=== PATIENT | female | born 1990 | race Caucasian/White ===

== ENCOUNTER 2022-01-20 12:22 | Emergency (ER) | payer MEDICAID, SELFPAY ==
--- NOTE | ~2022-01-20 | CT_ITS ---
EXAMINATION: CT LUMBAR SPINE WITHOUT CONTRAST CLINICAL INFORMATION: Lumbar pain. Tingling in legs. COMPARISON: None TECHNIQUE: Helical non-contrast CT images were obtained through the lumbar spine without contrast. Multiplanar reformats were rendered and reviewed. This CT examination was performed using dose optimization techniques as appropriate, variously including the following: *Automated exposure control *Adjustment of mA and/or kV according to patient size (this includes techniques or standardized protocols for targeted exams where dose is matched to indication/reason for exam; i.e. extremities or head) *Use of iterative reconstruction technique DLP: 630 mGy-cm FINDINGS: The lumbar vertebral bodies maintain normal heights and alignment. No significant disc height loss is seen. There is no fracture. No pars defect is seen. There is no significant narrowing of the spinal canal. No gross disc herniation is seen. The extraspinal soft tissues appear normal. CT/CT lumbar spine wo con IMPRESSION: No abnormality identified within the lumbar spine. No fracture or malalignment. No evidence of gross disc herniation.
[2022-01-20 12:25] VITALS: BP 148/89; PULSE 93; RESP 18; TEMP 36.9; O2SAT 98; BMI 31.6
[2022-01-20 13:28] LABS: MANUAL DIFF FLAG NO
[2022-01-20 13:35] LABS: Basophils Percent Auto 0.4 % (0-2); Eosinophils Absolute Auto 0.1 X10*3/uL (0.0-0.4); Eosinophils Percent Auto 1.6 % (0-4); Hematocrit 40.6 % (37.0-47.0); Hemoglobin 13.8 g/dl (12.0-16.0); Imm Gran Abs Auto 0.01 X10*3/uL (0.00-0.03); Imm Gran Pct Auto 0.1 % (0.0-0.4); Lymphocytes Absolute Auto 1.8 X10*3/uL (1.2-4.9); Lymphocytes Percent Auto 25.1 % (20-40); Mean Corpuscular Hemoglobin 32.8 pg (27.0-33.0); Mean Corpuscular Volume 96.4 fL (80.0-98.0); Mean Platelet Volume 10.8 fL (9.4-12.3); Monocytes Absolute Auto 0.8 X10*3/uL (0.1-1.2); Monocytes Percent Auto 11.5 % (2-11); Neutrophils Absolute Auto 4.3 x10*3/uL (2.0-8.3); Neutrophils Percent Auto 61.3 % (45-73); Platelet Count 357 X10*3/uL (160-400); Red Blood Count 4.21 X10*6/uL (4.20-5.50); Red Cell Distribution Width 11.9 % (11.0-16.0)
[2022-01-20 13:42] LABS: Anion Gap 12 (12-20); Blood Urea Nitrogen 5 mg/dL (9-16); Carbon Dioxide 31 mmol/L (22-29); Chloride 100 mmol/L (96-108); Creatinine Clr Calc Pharmacy 117.8; Estimated Glomerular Filt Rate > 60; Glucose Random 99 mg/dL (60-115); Potassium 3.4 mmol/L (3.3-5.1); Sodium 140 mmol/L (135-145)
[2022-01-20 13:44] LABS: Appearance Urine HAZY; Color Urine DK YELLOW; Glucose Urine UA NEG (NEG); Leukocyte Esterase Urine TRACE (NEG); Nitrite Urine NEG (NEG); Specific Gravity - Urine 1.025 (1.005-1.025); Urine Blood NEG (NEG); Urine Ketones NEG (NEG); Urine Protein TRACE MG/DL (NEG-TRACE)
[2022-01-20 13:53] LABS: Bacteria Urine TRACE /LPF; Mucus Urine 3+ /LPF; RBC Urine 0 /HPF (0); Squamous Epithelial Cell Urine 3+ /LPF
[2022-01-20 15:19] VITALS: BP 133/84; PULSE 81; RESP 16; TEMP 36.6; O2SAT 99
[2022-01-20 15:57] LABS: B Type Natriuretic Peptide 36 pg/mL (<100)
--- NOTE | 2022-01-20 16:03 | ED.GENADULT ---
HPI - General Adult General Chief complaint: General Medical Stated complaint: back pain/swollen legs and feet Time Seen by Provider: 01/20/22 15:22 Source: patient Mode of arrival: ambulatory Limitations: no limitations History of Present Illness HPI narrative: Patient comes to the emergency room complaining of lower back pain for 1 week. Patient states her legs feel tingly. Patient denies any motor dysfunction. Denies any injury, denies urinary/fecal incontinence/retention. Also, patient states that within the last few days, she has noticed that her lower extremities have been edematous Related Data Previous Rx's Medication Instructions Recorded furosemide 20 mg tablet (Lasix) 20 mg PO DAILY #5 tab 01/20/22 ketorolac 10 mg tablet 10 mg PO BID PRN 5 Days #7 tab 01/20/22 Allergies Allergy/AdvReac Type Severity Reaction Status Date / Time amoxicillin [AMOXICILLIN] Allergy Severe ANAPHYLAXIS Unverified 05/02/20 16:58 penicillin V Allergy Unknown hives, SOB Verified 12/24/14 00:00 From Pen-Vee K Allergy Severe ANAPHYLAXIS Uncoded 05/02/20 16:58 Review of Systems Review of Systems: Constitutional : No Weight loss, No Fever, No Chills, No Night Sweats, No Fatigue, No Malaise ENT/Mouth : No Hearing loss, No Ear Pain, No Nasal Congestion, No Sinus Pain, No Hoarseness, No sore throat, No Rhinorrhea, No Swallowing Difficulty Eyes: No Eye Pain, No Swelling, No Redness, No Foreign Body, No Discharge, No Vision Changes Cardiovascular : No Chest Pain, No SOB, No Dyspnea on Exertion, No Orthopnea, no palpitations Respiratory : No Cough, No Sputum, No Wheezing, No Smoke Exposure, No Dyspnea Gastrointestinal : No Nausea, No Vomiting, No Diarrhea, No Constipation, No abdominal Pain, No Hematochezia, No Melena Genitourinary : no irregular bleeding, No Dysuria, No Urinary Frequency, No Hematuria, No Urinary Incontinence, No Urgency, No Flank Pain, No Urinary Flow Changes, No Hesitancy Musculoskeletal : No joint pain, No Myalgias, No Joint Swelling, complaining of new onset mild lower extremity edema bilaterally, complaining of tingling in her lower extremities bilaterally for 1 week Skin : No Skin Lesions, No rash Neuro : No Weakness, No Numbness, No Paresthesias, No Loss of Consciousness, No Dizziness, No Headache Psych : No Anxiety/Panic, No Depression, No SI/HI/AH/VH, No Social Issues, Heme/Lymph: No Bruising, No Bleeding,No Lymphadenopathy Endocrine : No Polyuria, No Polydipsia, No Temperature Intolerance [facility] Social History Social History Advance Directives: No Advance Directives Information Provided: No Physical Exam ED Vital Signs: Vital Signs - 24 hr 01/20/22 12:25 01/20/22 15:19 01/20/22 18:34 Temperature 98.4 F 97.8 F 98.0 F Pulse Rate 93 81 73 Respiratory Rate 18 16 16 Blood Pressure 148/89 H 133/84 127/83 Pulse Oximetry 98 99 99 BMI result Body Mass Index 31.6 Const Other: Appearance: Alert. Oriented X3. No acute distress. Eyes: Pupils equal, round and reactive to light. ENT: Pharynx normal. Neck: Normal inspection. Neck supple. No lymph nodes noted. No crepitus CVS: Normal heart rate and rhythm. Pulses normal. Normal S1 and S2 Respiratory: No respiratory distress. Breath sounds normal. No Wheezing. No rales Abdomen: Soft and nontender. No rigidity. No distention. Back: Pain to palpation in lumbar spine, negative straight leg raise test. Patient has 5/5 strength, normal stable gait unassisted Skin: Skin warm and dry. Normal skin color. Normal skin turgor. Extremities: No lower extremity edema. No Lacerations. No Rash Neuro: Oriented X 3. No motor deficit. No sensory deficit. Moving all extremities. No slurred speech. CN 2 through 12 grossly intact Psych: calm, cooperative, normal affect Course Course Course Narrative: Discussed labs imaging with the patient, no acute findings. Urinalysis has leukocyte esterase, small amount of white blood cells, and positive for squamous epithelial cells. Patient does not have UTI symptoms, antibiotic is not indicated. Patient was given 1 dose of IM Toradol, and Lasix 20 mg p.o. I discussed with the patient that she will be up all night urinating, states that she prefers to start the medication now Patient's back pain is likely musculoskeletal. Patient has no neurological deficits. Lower extremity edema likely secondary to venous insufficiency. BNP within normal limits. Medical Decision Making Lab Data Result diagrams: 01/20/22 13:20 01/20/22 13:20 Labs: Lab Results 01/20/22 01/20/22 01/20/22 Range/Units 13:20 13:20 13:20 WBC 7.0 (4.8-10.8) X10*3/uL RBC 4.21 (4.20-5.50) X10*6/uL Hgb 13.8 (12.0-16.0) g/dl Hct 40.6 (37.0-47.0) % MCV 96.4 (80.0-98.0) fL MCH 32.8 (27.0-33.0) pg MCHC 34.0 (31.0-35.0) g/dl RDW 11.9 (11.0-16.0) % Plt Count 357 (160-400) X10*3/uL MPV 10.8 (9.4-12.3) fL Immature Gran % (Auto) 0.1 (0.0-0.4) % Neut % (Auto) 61.3 (45-73) % Lymph % (Auto) 25.1 (20-40) % King[place]isher % (Auto) 11.5 H (2-11) % Eos % (Auto) 1.6 (0-4) % Baso % (Auto) 0.4 (0-2) % Lymph # (Auto) 1.8 (1.2-4.9) X10*3/uL [place] # (Auto) 0.8 (0.1-1.2) X10*3/uL Eos # (Auto) 0.1 (0.0-0.4) X10*3/uL Baso # (Auto) 0.0 (0.0-0.2) X10*3/uL Abs Immat Gran (auto) 0.01 (0.00-0.03) X10*3/uL Absolute Neuts (auto) 4.3 (2.0-8.3) x10*3/uL Absolute Nucleated RBC 0.000 (0.0-0.012) X10*3/uL Nucleated RBC % (auto) 0.0 (0.0-0.2) /100WBC Sodium 140 (135-145) mmol/L Potassium 3.4 (3.3-5.1) mmol/L Chloride 100 (96-108) mmol/L Carbon Dioxide 31 H (22-29) mmol/L Anion Gap 12 (12-20) BUN 5 L (9-16) mg/dL Creatinine 0.75 (0.5-1.4) mg/dL Estim Creat Clear Calc 117.8 Estimated GFR > 60 Random Glucose 99 (60-115) mg/dL Calcium 9.0 (8.4-10.2) mg/dL B-Natriuretic Peptide 36 (<100) pg/mL Beta HCG, Quant < 2 mIU/mL Urine Color Urine Appearance Urine pH (5.0-8.0) Ur Specific [place] (1.005-1.025) Urine Protein (NEG-TRACE) MG/DL Urine Glucose (UA) (NEG) MG/DL Urine Ketones (NEG) MG/DL Urine Blood (NEG) Urine Nitrite (NEG) Ur Leukocyte Esterase (NEG) Urine RBC (0) /HPF Urine WBC (0-4) /HPF Ur Squamous Epith Cells /LPF Urine Bacteria /LPF Urine Mucus /LPF 01/20/22 Range/Units 13:32 WBC (4.8-10.8) X10*3/uL RBC (4.20-5.50) X10*6/uL Hgb (12.0-16.0) g/dl Hct (37.0-47.0) % MCV (80.0-98.0) fL MCH (27.0-33.0) pg MCHC (31.0-35.0) g/dl RDW (11.0-16.0) % Plt Count (160-400) X10*3/uL MPV (9.4-12.3) fL Immature Gran % (Auto) (0.0-0.4) % Neut % (Auto) (45-73) % Lymph % (Auto) (20-40) % Kingfisher % (Auto) (2-11) % Eos % (Auto) (0-4) % Baso % (Auto) (0-2) % Lymph # (Auto) (1.2-4.9) X10*3/uL [place] # (Auto) (0.1-1.2) X10*3/uL Eos # (Auto) (0.0-0.4) X10*3/uL Baso # (Auto) (0.0-0.2) X10*3/uL Abs Immat Gran (auto) (0.00-0.03) X10*3/uL Absolute Neuts (auto) (2.0-8.3) x10*3/uL Absolute Nucleated RBC (0.0-0.012) X10*3/uL Nucleated RBC % (auto) (0.0-0.2) /100WBC Sodium (135-145) mmol/L Potassium (3.3-5.1) mmol/L Chloride (96-108) mmol/L Carbon Dioxide (22-29) mmol/L Anion Gap (12-20) BUN (9-16) mg/dL Creatinine (0.5-1.4) mg/dL Estim Creat Clear Calc Estimated GFR Random Glucose (60-115) mg/dL Calcium (8.4-10.2) mg/dL B-Natriuretic Peptide (<100) pg/mL Beta HCG, Quant mIU/mL Urine Color DK YELLOW Urine Appearance HAZY Urine pH 6.0 (5.0-8.0) Ur Specific [place] 1.025 (1.005-1.025) Urine Protein TRACE (NEG-TRACE) MG/DL Urine Glucose (UA) NEG (NEG) MG/DL Urine Ketones NEG (NEG) MG/DL Urine Blood NEG (NEG) Urine Nitrite NEG (NEG) Ur Leukocyte Esterase TRACE H (NEG) Urine RBC 0 (0) /HPF Urine WBC 5-9 H (0-4) /HPF Ur Squamous Epith Cells 3+ /LPF Urine Bacteria TRACE /LPF Urine Mucus 3+ /LPF Imaging Data Lumbar CT: Radiologist's impression: INDINGS: The lumbar vertebral bodies maintain normal heights and alignment. No significant disc height loss is seen. There is no fracture. No pars defect is seen. There is no significant narrowing of the spinal canal. No gross disc herniation is seen. The extraspinal soft tissues appear normal. CT/CT lumbar spine wo con IMPRESSION: No abnormality identified within the lumbar spine. No fracture or malalignment. No evidence of gross disc herniation. Discharge Plan Discharge Clinical Impression: Lumbar back pain, Edema of lower extremity Patient Disposition: Home, Self-Care Instructions: Leg Edema (ED), Lower Back Exercises (ED) Additional Instructions: Please follow-up with your primary care physician tomorrow. If you have any worsening or new symptoms, please return to the emergency room or call 911 Prescriptions: New furosemide [Lasix] 20 mg tablet 20 mg PO DAILY Qty: 5 0RF ketorolac 10 mg tablet 10 mg PO BID PRN (Reason: pain) 5 Days Qty: 7 0RF Rx Instructions: Under use with ibuprofen, Aleve, naproxen. If needed, only use Tylenol
[2022-01-20 18:34] VITALS: BP 127/83; PULSE 73; RESP 16; TEMP 36.7; O2SAT 99
[2022-01-20 18:52] LABS: HCG Quantitative < 2 mIU/mL
[2022-01-20] MEDS: Ketorolac Tromethamine 60 MG/2 ML VIAL IM (20:06)
[2022-01-20] MEDS: Furosemide 20 MG TABLET PO (20:07)
== END 2022-01-20 20:10 | disposition home or self-care (01) ==
PROVIDERS: Emergency Provider Emergency Medicine
DX: M54.50 Low back pain, unspecified (principal); R60.0 Localized edema
CPT/HCPCS: 36415; 72131; 80048; 81001; 83880; 84702; 85025; 87086; 96372; 99283; 99284; J1885

== ENCOUNTER 2025-04-18 14:07 | Emergency (ER) | payer SELFPAY | END 2025-04-18 14:29 | disposition left against medical advice (07) | PROVIDERS: Emergency Provider Emergency Medicine | DX: Z04.1 Encounter for examination and observation following transport accident (principal); Z53.21 Procedure and treatment not carried out due to patient leaving prior to being seen by health care provider ==

== ENCOUNTER 2025-04-19 08:05 | Emergency (ER) | payer SELFPAY ==
[2025-04-19 08:10] VITALS: BP 143/80; PULSE 74; RESP 16; TEMP 36.6; O2SAT 97; BMI 33.3
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
--- OUTSIDE RECORDS SUMMARY | 2025-04-19 08:57 | XMS_ITS | Clinical Summary ---
Author Organization [facility] Address [address] [place] [id number] Phone Care Team Providers Care Ship Mate Name Role Phone Unavailable Primary Care Provider Unavailabl e Immunizations Immunization Administration Dates Next Due DTP 01/12/1995, 2,1990,07/11,1990 HPV, Quadrivalent 09/21/2007 Hep B, ped/adol 07/28/2001,03/01/2001,10/06/2000 Hib (HbOC) 1990 Hib (PRP-T) 06/06/1991,1990 MMR 01/12/1995,06/06/1991 Meningococcal Conj (Menactra) MCV4P 05/30/2007 OPV 01/12/1995, 2,1990,04/22 Td (adult) (MBL), 2 Lf tetan us toxoid, PF, adsorbed 07/28/2001 Tdap 05/30/2007 Social History Tobacco Use Types Packs/Day Years Used Date Smoking Tobacco: Never Assessed Comments Unknown Sex and Gender Information Value Date Recorded Sex Assigned at Not on file Legal Sex Female 4:46 PM EDT Gender Identity Not on file Sexual Orientation Not on file Plan of Treatment Health Maintenance Due Date Last Done Comments Varicella Vaccines (1 of 2 - 13+ 2-dose series) 2003 HPV Vaccines (2 - 3-dose series) 10/19/2007 09/21/2007 DTaP,Tdap,and Td Vaccines (7 - Td or Tdap) 05/30/2017 05/30/2007, 07/28/2001, 01/12/1995, Additional history exists Influenza Vaccines (#1) 2025 COVID-19 Vaccine ( season) 2025 HIB Vaccines Completed 06/06/1991, 11/14, 1990 IPV Vaccines Completed 01/12/1995, 09/1991, 1990, Additional history exists MMR Vaccines Completed 01/12/1995, 06/06/1991 Hepatitis B Vaccines Completed 07/28/2001, 03/01/2001, 10/06/2000 Meningococcal Vaccine Completed 05/30/2007 Hepatitis A Vaccines Aged Out No long er eligible based on patient's age to complete this topic Men B Vaccine Aged Out No longer elig ible based on patient's age to complete this topic Pneumococcal Vaccine Aged Out No long er eligible based on patient's age to complete this topic
--- OUTSIDE RECORDS SUMMARY | 2025-04-19 08:58 | XMS_ITS | Encounter Summary ---
Author Organization [facility] Address [address] [place] [address] Phone Care Team Providers Care Cotton Stomper Name Role Phone Stephanie Mares MD Primary Care Provider [phone] Encounter Details Date Type Department Care Team (Late st Contact Info) Description 01/31/2013 Documentation [facility] [address] [place] [address] Family Medicine, Physician [address] [place], [place] [id number] Social History Tobacco Use Types Packs/Day Years Used Date Smoking Tobacco: Never Assessed Comments Unknown Sex and Gender Information Value Date Recorded Sex Assigned at Not on file Legal Sex Female 4:46 PM EDT Gender Identity Not on file Sexual Orientation Not on file documented as of this encounter Plan of Treatment Not on file documented as of this encounter Visit Diagnoses Not on filedocumented in this encounter Care Teams Cotton Stomper Relationship Specialty Start Date End Date Stephanie Mares MD [address] [place] [address] PCP - General 03/26/17 01/20/23 documented as of this encounter
[2025-04-19 09:02] VITALS: BP 143/80; PULSE 74; RESP 16; TEMP 36.6; O2SAT 97
== END 2025-04-19 09:04 | disposition home or self-care (01) ==
PROVIDERS: Emergency Provider Emergency Medicine
DX: S13.4XXA Sprain of ligaments of cervical spine, initial encounter (principal); V43.52XA Car driver injured in collision with other type car in traffic accident, initial encounter; Y93.9 Activity, unspecified; Y92.410 Unspecified street and highway as the place of occurrence of the external cause; Y99.2 Volunteer activity
CPT/HCPCS: 99283; 99284